=== PATIENT | female | born 1945 | race Hispanic/Latino ===

== ENCOUNTER 2017-05-07 10:04 | Emergency (ER) | payer MEDICARE ==
[~2017-05-07 10:04] MED LIST: AMLO5TAB2 PO; ASPI-1181 PO; CALC-135 PO; CETI10TA57 PO; CHOL200013 PO; CLOP75TA14 PO; CYCL30DR OU; ENAL1TAB11 PO; GARL1000 PO; LORA0.5T2 PO; METO-408 PO; MULT-27 PO; NAPR-1141 PO; OMEP20CA10 PO; SIMV20TA6 PO; VITA100012 PO
== END 2017-05-07 12:49 | disposition home or self-care (01) ==
LOC: EDH 10:04
DX: S60.212A Contusion of left wrist, initial encounter (principal); S20.212A Contusion of left front wall of thorax, initial encounter; S40.022A Contusion of left upper arm, initial encounter; E78.5 Hyperlipidemia, unspecified; I10 Essential (primary) hypertension; Z88.6 Allergy status to analgesic agent; Z91.041 Radiographic dye allergy status; Z90.710 Acquired absence of both cervix and uterus; Z98.890 Other specified postprocedural states; W18.39XA Other fall on same level, initial encounter; Y93.89 Activity, other specified; Y92.89 Other specified places as the place of occurrence of the external cause; Y99.8 Other external cause status
CPT/HCPCS: 71100; 73060; 73110

== ENCOUNTER → 2018-12-24 | Outpatient (CLI) | payer MEDICARE ==
[~2018-12-24] VITALS: Ht 162.6 cm; Wt 95.7 kg
[~2018-12-24] MED LIST changes: -AMLO5TAB2 PO; +AMLO5TAB9 PO; +OMEP-50 PO; -OMEP20CA10 PO; +REGADENOSON 0.4 MG/5 ML PF SYG IVP SCH
== END | disposition home or self-care (01) ==
LOC: SHCH 09:03
PROVIDERS: ATTEND Internal Medicine Cardiovascular Disease
DX: I25.10 Atherosclerotic heart disease of native coronary artery without angina pectoris (principal)
CPT/HCPCS: 78452; 93017; 96374; A9500 ×2; J2785

== ENCOUNTER → 2021-10-05 | Outpatient (CLI) | payer MEDICARE ==
[~2021-10-05] MED LIST changes: +AMLO-257 PO; -AMLO5TAB9 PO; -ASPI-1181 PO; +ASPI-1443 PO; -MULT-27 PO; +MULT-673 PO; -OMEP-50 PO; +OMEP20CA12 PO; -REGADENOSON 0.4 MG/5 ML PF SYG IVP SCH; +SIMV-43 PO; -SIMV20TA6 PO
== END | disposition home or self-care (01) ==
LOC: RAH 15:03
PROVIDERS: ATTEND Family Medicine
DX: N81.10 Cystocele, unspecified (principal); R10.2 Pelvic and perineal pain
CPT/HCPCS: 76857